=== PATIENT | male | born 1995 | race Two or more races ===

== ENCOUNTER 2022-04-18 15:02 | Emergency (ER) | payer OTHER ==
[~2022-04-18] VITALS: Ht 165.1 cm; Wt 68.0 kg
--- NOTE | 2022-04-18 15:36 | NUR ---
TAKEN TO CT VIA WHEELCHAIR
[2022-04-18] MEDS ORDERED: IBUP-1953 PO (16:30)
[2022-04-18 16:41] VITALS: BP 123/66
== END 2022-04-18 16:42 | disposition home or self-care (01) ==
LOC: ER 15:16
DX: S30.0XXA Contusion of lower back and pelvis, initial encounter (principal); S40.021A Contusion of right upper arm, initial encounter; S29.9XXA Unspecified injury of thorax, initial encounter; V29.888A Rider (driver) (passenger) of other motorcycle injured in other specified transport accidents, initial encounter; Y93.89 Activity, other specified; Y92.89 Other specified places as the place of occurrence of the external cause; Y99.8 Other external cause status
CPT/HCPCS: 72128-TC

== ENCOUNTER → 2023-12-08 | Emergency (ER) | payer MEDICAID, OTHER ==
[~2023-12-08] VITALS: Ht 165.1 cm; Wt 64.9 kg
[~2023-12-08] MED LIST: IBUP-1953 PO
[2023-12-08] MEDS: TDAP [DIPH/PERTUSSIS/TET] 0.5 ML VIAL IM ONE (15:19)
[2023-12-08] MEDS: BACI/NEOM/POLY B OINT PKT 1 UDPKT PACKET TP ONE (15:19)
[2023-12-08 15:57] VITALS: BP 128/71; TEMP 98.1; O2SAT 100
== END | disposition home or self-care (01) ==
LOC: ER 13:59
DX: S50.812A Abrasion of left forearm, initial encounter (principal); S50.811A Abrasion of right forearm, initial encounter; M25.551 Pain in right hip; V23.49XA Other motorcycle driver injured in collision with car, pick-up truck or van in traffic accident, initial encounter; Y93.89 Activity, other specified; Y92.488 Other paved roadways as the place of occurrence of the external cause; Y99.8 Other external cause status
CPT/HCPCS: 72040-TC; 73130-TC; 73502; 90715